=== PATIENT | female | born 1995 | race Caucasian/White ===

== ENCOUNTER 2024-10-17 07:49 | Outpatient (OUT) | payer OTHER, SELFPAY ==
[2024-10-17 08:12] LABS: Cholesterol 146 mg/dL (<=200); Glucose 89 mg/dL (74-106); HDL Cholesterol 49 mg/dL (40-60); Triglycerides 71 mg/dL (<=150); VLDL CHOLESTEROL 14.2 mg/dL
== END 2024-10-17 07:50 | disposition home or self-care (01) ==
LOC: LAB 07:49
PROVIDERS: PCP Family Medicine; Visit Provider Family Medicine
DX: Z00.00 Encounter for general adult medical examination without abnormal findings (principal)
CPT/HCPCS: 36415; 80061; 82947